=== PATIENT | male | born 1930 | race Caucasian/White ===

== ENCOUNTER 2021-05-23 21:09 | Inpatient (IN) | payer OTHER ==
[~2021-05-23] VITALS: Ht 182.9 cm; Wt 99.8 kg
[2021-05-23 21:09] VITALS: BP 137/76
[~2021-05-23 21:09] MED LIST: ASPIR 8181 MG PO; BISOPROLOL FUMAR5 M1 PO; GLUCOTROL5 MG PO; HYDROCHLOROTH12.5 M1 PO; LEVAQUIN 500 M500 M2 PO; LISINOPRIL20 MG PO; MAGNESIUM400 MG PO; METFORMIN HCL500 M1 PO; MUCINEX TA600 MG/TA2 PO; NORVASC5 MG PO; PLAVIX 75 MG TA75 M1 PO; PRAVACHOL40 MG PO; TYLENOL325 MG PO; UROCIT-K10 ME1; VITAMIN B-12500 MCG PO; VITAMIN D3250 MC1 PO; VITAMIN D3400 UNIT PO
[2021-05-23] MEDS ORDERED: XARELTO20 MG PO (21:35)
[2021-05-23] MEDS ORDERED: KLOR-CON M2020 MEQ PO (21:40)
[2021-05-23 21:41] LABS: BASOPHILS 0.4 % (0.0-2.0); EOSINOPHILS 0.6 % (0.0-3.0); HEMATOCRIT 45.6 % (42.0-52.0); HEMOGLOBIN 14.8 gm/dL (14.0-18.0); LYMPHOCYTES 17.6 % (24.0-44.0); MCH 30.8 pg (26.0-34.0); MCHC 32.5 g/dL (28.0-37.0); MCV 94.6 fL (80.0-100.0); MONOCYTES 8.5 % (1.0-8.0); PLATELET COUNT 192 thou/uL (150-400); POLYS 72.9 % (36.0-66.0); RBC 4.81 mil/uL (4.50-6.00); RDW 14.3 % (10.5-14.5); WBC 9.6 thou/uL (4.0-11.0)
[2021-05-23] MEDS ORDERED: BASAGLAR K100 UNIT/1 SUBQ ×2 (21:43)
[2021-05-23 21:44] LABS: CALCIUM 9.1 mg/dL (8.5-10.1); POTASSIUM 4.1 mmol/L (3.5-5.1)
[2021-05-23 21:54] LABS: ALBUMIN 3.2 g/dL (3.4-5.0); TOTAL BILIRUBIN 0.4 mg/dL (0.2-1.0); TOTAL PROTEIN 7.1 g/dL (6.4-8.2)
--- NOTE | 2021-05-23 23:39 | NUR ---
(JAQUAN HUGO) WENT HOME. PT'S PRIVACY CODE GIVEN TO . [facility] # [phone] [facility] # [phone]
[2021-05-24 04:58] LABS: CALCIUM 8.6 mg/dL (8.5-10.1); CREATININE 0.8 mg/dL (0.7-1.3); POTASSIUM 3.9 mmol/L (3.5-5.1)
[2021-05-24 05:05] LABS: CHOLESTEROL 129 mg/dL (<200); HDL CHOLESTEROL 37 mg/dL (>40); LDL CHOLESTEROL 66 mg/dL (<100); TC:HDL 3.5 Ratio (Not establshd); TRIGLYCERIDE 132 mg/dL (<150); VLDL 26 mg/dL (<40)
[2021-05-24 05:06] LABS: SERUM ASSESSMENT Clear
--- NOTE | 2021-05-24 06:16 | NUR ---
PT REMAINED IN ER DURING THE NIGHT, WAITING FOR INPATIENT BED. NO NEW COMPLAINTS. CHEST PAIN HAS RESOLVED, EXCEPT FOR SOME DISCOMFORT WITH DEEP BREATHS. HE REMAINS ON 2L NC FOR COMFORT. VSS. AFEBRILE. AFIB W/ PVCS ON CAR STORER. IVF INFUSING ORDERED. CARDIOLOGY CONSULT CALLED. WILL GIVE REPORT TO DAY RN.
--- NOTE | 2021-05-24 07:15 | NUR ---
REPORT CALLED TO SUN OVIEDO IN CCU.
[2021-05-24 08:19] VITALS: BP 140/79
[2021-05-24 09:11] VITALS: BP 115/67
--- NOTE | 2021-05-24 11:51 | EKG ---
[place] [address] [facility] [address] ELECTROCARDIOGRAM REPORT Name: SATNAM HUGO Room #: 206-P ADM IN M.R.#: [id number] Admission: 05/23/21 Attend Phys: Quinten Schulz MD Discharge: Date of : [birth year] Report #: [id number] [facility] Test Date: 2021-05-24 Test Time: 08:12:20 Pat Name: SATNAM HUGO Department: Room: 206 Gender: M Claim Taker: JAVIER : 1930 Requested By: Amanda Mendez Order Number: [id number] MD: Anthony Shoemaker Measurements Intervals [place] Rate: 74 P: 33 VA: 227 QRS: 21 QRSD: 104 T: 9 QT: 405 QTc: 450 Interpretive Statements Sinus rhythm Prolonged VA interval Abnormal R-wave progression, early transition Inferior infarct, old Compared to ECG 05/23/2021 21:12:26 No significant change Electronically Signed On 05-24-2021 11:51:19 CDT by Anthony Shoemaker [email or web address] <ELECTRONICALLY SIGNED> By: Anthony Shoemaker MD 05/24/21 1151 1 1 Anthony Shoemaker MD /DARA
--- NOTE | 2021-05-24 11:54 | EKG ---
[place] [address] [facility] [place] [address] ELECTROCARDIOGRAM REPORT Name: SATNAM HUGO Room #: 206-P ADM IN M.R.#: [id number] Admission: 05/23/21 Attend Phys: Quinten Schulz MD Discharge: Date of : [birth year] Report #: [id number] [facility] ED Test Date: 2021-05-23 Test Time: 21:12:26 Pat Name: SATNAM HUGO Department: Room: 206 Gender: M Corporate Tax Manager: GENNY : 1930 Requested By: Rodney Pope Order Number: [id number] MD: Anthony Shoemaker Measurements Intervals [place] Rate: 76 P: 25 CO: 194 QRS: 36 QRSD: 114 T: 23 QT: 393 QTc: 442 Interpretive Statements Sinus rhythm Multiple premature complexes, vent & supraven Borderline intraventricular conduction delay Abnormal R-wave progression, early transition Compared to ECG 04/21/2015 07:20:11 PVC present Electronically Signed On 05-24-2021 11:54:09 CDT by Anthony Shoemaker [email or web address] <ELECTRONICALLY SIGNED> By: Anthony Shoemaker MD 05/24/21 1154 11 11 MD SHANAE Rawls
[2021-05-24 16:00] VITALS: BP 130/54
[2021-05-24 19:16] VITALS: BP 105/45
[2021-05-25 04:02] VITALS: BP 109/68
[2021-05-25 04:05] LABS: GLYCOHEMOGLOBIN (HGB A1C) 7.8 % (4.8-5.6)
--- NOTE | 2021-05-25 06:42 | NUR ---
ASSUME CARE 1900. PT/VITALS STABLE. DENIES ANY PAIN THROUGH THE SHIFT. SR/1D AVB NOTED ON MONITO. GOOD ENDURANCE TO ACTIVITY. NO SOB NOTED. NO DISTRESZS/ADEQUATE REST NOTED THROUGH THE NIGHT. NPOAFTER MIDNIGHT FOR STRESS TEST/ECHO THIS AM. PLAN IS FOR POSSIBLE DISCHARGE IF STRESS TEST/ECHO ARE OK. WILL CONTINUE TO MONITOR AND FOLLOW WITH POC
[2021-05-25 08:00] VITALS: BP 125/69
--- NOTE | 2021-05-25 08:33 | HC ---
[facility] [place] [address] CONSULTATION Name: SATNAM HUGO Room #: 206-P ADM IN M.R.#: [id number] Admission: 05/23/21 Attend Phys: Francois Caldera MD Discharge: Date of : [birth year] Report #: [id number] THIS REPORT FOR: cc: Sivakumar Conde MD, Usman MD Park, Jin S. MD ~ DATE OF SERVICE: 05/24/2021 CARDIOLOGY CONSULTATION CHIEF COMPLAINT: Chest pain. HISTORY OF PRESENT ILLNESS: This 89-year-old gentleman with a history of CAD, status post stent, PAF, hypertension, diabetes mellitus, hyperlipidemia, hypercholesterolemia and edema, presenting with chest pain. Yesterday, he developed a discomfort on the left upper chest area radiating down the left side. It was not associated with any exertion. It was intermittent, lasting approximately 10-15 minutes in duration. Not associated with any shortness of breath or diaphoresis. He had recurrent pains last evening and decided to come to the ER for evaluation. There is no change with stretching or palpation over the area. Toward the end of his inspiration, he does feel it. There is no history of fever, chills or diarrhea. PAST MEDICAL HISTORY: Follows with Dr. Viera. Previous stent placement. History of paroxysmal atrial fibrillation, diabetes, hypertension, hyperlipidemia and edema. ALLERGIES: None. MEDICATIONS AT HOME: Include glipizide, Pravachol 40 mg, hydrochlorothiazide, bisoprolol, amlodipine, lisinopril, metformin, Xarelto, and insulin. SOCIAL HISTORY: Negative for tobacco use. FAMILY HISTORY: Negative for premature CAD. REVIEW OF SYSTEMS: A full 10-point review of systems performed. Only the pertinent positives and negatives described in the HPI. PHYSICAL EXAMINATION: VITAL SIGNS: Blood pressure is 115/67, heart rate is 50 beats per minute. GENERAL APPEARANCE: Overweight male, in no acute distress. HEENT: Normocephalic, atraumatic. Oral mucosa moist. [facility] [address] [place] [address] CONSULTATION Name: SATNAM HUGO Room #: 206-P [facility] IN .R.#: [id number] Admission: 05/23/21 Attend Phys: Francois Caldera MD Discharge: Date of : [birth year] Report #: [id number] NECK: Supple. LUNGS: CTA. HEART: Regular rate and rhythm, S1, S2 positive. ABDOMEN: Soft, nontender. EXTREMITIES: No cyanosis. Positive lower extremity edema. DIAGNOSTIC DATA: ECG reveals sinus rhythm, early transition, inferior wall NM, no acute ST segment changes. LABORATORY DATA: Troponin x2 is negative. ASSESSMENT AND PLAN: 1. Chest pain syndrome, the differential includes ischemia, musculoskeletal, pleuritic, etc. Initial evaluation is not consistent with an acute coronary syndrome. However, he has significant risk factors and we will proceed with noninvasive stress testing. 2. Paroxysmal atrial fibrillation, remains in sinus rhythm. Continue on meds. 3. Hypertension, continue on the current medical regimen. 4. Diabetes mellitus, continue on insulin and check fingersticks. 5. Coronary artery disease with stent placement, follows with Dr. Viera. <ELECTRONICALLY SIGNED> By: Anthony Shoemaker MD 05/25/21 0833 1136 1415 Anthony Shoemaker MD /nt
--- NOTE | 2021-05-25 12:34 | 2DMMODE ---
[facility] [place] [address] 2 D/M-MODE ECHOCARDIOGRAM Name: SATNAM HUGO Room #: 206-P ADM IN .R.#: [id number] Admission: 05/23/21 Attend Phys: Francois Caldera MD Discharge: Date of : [birth year] Report #: [id number] THIS REPORT FOR: cc: Sivakumar Conde MD, Usman MD Park, Jin S. MD ~ APPROVED REPORT Study performed: 05/25/2021 08:25:59 EXAM: Comprehensive 2D, Doppler, and color-flow Echocardiogram Patient Location: In-Patient Room #: 206 Status: routine BSA: 2.21 HR: 80 bpm BP: 109/68 mmHg Rhythm: NSR Other Information Study Quality: Adequate Indications Atrial Fibrillation CAD Chest Pain Edema 2D Dimensions IVSd: 13.91 (7-11mm) LVDd: 28.72 mm PWd: 10.32 (7-11mm) LVDs: 17.90 (25-40mm) Left Atrium: 40.66 (27-40mm) Aortic Root: 34.01 mm Volumes Left Atrial Volume (Systole) Single Plane 4CH: 58.57 mL Single Plane 2CH: 49.12 mL Biplane LA Volume: 61.00 mL LA ESV Index: 27.00 mL/m2 Aortic Valve AoV Peak Akin.: 1.65 m/s AO Peak Gr.: 14.48 mmHg LVOT Max P.60 mmHg [facility] [address] [place] [address] 2 D/M-MODE ECHOCARDIOGRAM Name: SATNAM HUGO Room #: 206-P ADM IN M.R.#: [id number] Admission: 05/23/21 Attend Phys: Francois Caldera MD Discharge: Date of : [birth year] Report #: [id number] LVOT Max V: 0.95 m/s Mitral Valve E/A Ratio: 0.9 MV Decel. Time: 342.67 ms MV E Max Akin.: 0.80 m/s MV A Akin.: 0.91 m/s MV PHT: 99.37 ms IVRT: 83.04 ms Pulmonary Valve PV Peak Akin.: 0.92 m/s PV Peak Gr.: 3.40 mmHg Pulmonary Vein P Vein S: 0.25 m/s P Vein A: 0.35 m/s P Vein D: 0.32 m/s P Vein A Dur.: 156.9 msec P Vein S/D Ratio: 0.78 Tricuspid Valve TR Peak Akin.: 2.66 m/s RAP Estimate: 7.00 mmHg TR Peak Gr.: 28.34 mmHg RVSP: 35.00 mmHg Left Ventricle The left ventricle is normal size. There is normal LV segmental wall motion. Mild concentric left ventricular hypertrophy. The left ventricular systolic function is normal. The left ventricular ejection fraction is within the normal range. LVEF is 65-70%. Transmitral Doppler flow pattern suggests impaired LV relaxation. Right Ventricle The right ventricle is normal size. The right ventricular systolic function is normal. Atria The left atrium size is normal. The right atrium size is normal. Aortic Valve The aortic valve is normal in structure. No aortic regurgitation is present. There is no aortic valvular stenosis. Mitral Valve The mitral valve is normal in structure. Trace mitral regurgitation. No evidence of mitral valve stenosis. [facility] [address] [place] [address] 2 D/M-MODE ECHOCARDIOGRAM Name: SATNAM HUGO [place] Room #: 206-P ADM IN M.R.#: [id number] Admission: 05/23/21 Attend Phys: Francois Caldera MD Discharge: Date of : [birth year] Report #: [id number] Tricuspid Valve The tricuspid valve is normal in structure. Mild tricuspid regurgitation. Pulmonic Valve The pulmonary valve is normal in structure. There is no pulmonic valvular regurgitation. Great Vessels The aortic root is normal in size. IVC is not well visualized. Pericardium No subcostal window <Conclusion> The left ventricle is normal size. Mild concentric left ventricular hypertrophy. The left ventricular systolic function is normal. The right ventricle is normal size. The left atrium size is normal. The aortic valve is normal in structure. Trace mitral regurgitation. Mild tricuspid regurgitation. <ELECTRONICALLY SIGNED> By: Anthony Shoemaker MD 05/25/21 1234 1234 1234 Anthony Shoemaker MD /INF
[2021-05-25] MEDS ORDERED: BAYER CHEWABLE81 MG PO (12:47)
[2021-05-25 14:35] VITALS: BP 125/69
--- NOTE | 2021-05-25 14:50 | NUR ---
ASSESSMENT CHARTED. PT ALERT AND ORIENTED. VSS. DENIED HAVING PAIN OR DISCOMFORT. ORDERS GIVEN TO DISCHARGE PT TO HOME. DISCHARGE INSTRUCTIONS GIVEN TO PT. PT VERBERLISED UNDERSTANDING.
== END 2021-05-25 14:54 | disposition home or self-care (01) | DRG 206 ==
LOC: ER 21:09 → EROBS 23:07 → 2N 23:07
PROVIDERS: Emergency Medicine; Nurse Practitioner Family; ADMIT Hospitalist; ATTEND Hospitalist
DX: M94.0 Chondrocostal junction syndrome [Tietze] (principal); I25.10 Atherosclerotic heart disease of native coronary artery without angina pectoris; Z20.822 Contact with and (suspected) exposure to COVID-19; Z79.899 Other long term (current) drug therapy; Z95.5 Presence of coronary angioplasty implant and graft; E78.5 Hyperlipidemia, unspecified; E11.9 Type 2 diabetes mellitus without complications; I48.0 Paroxysmal atrial fibrillation; Z79.01 Long term (current) use of anticoagulants; I10 Essential (primary) hypertension; Z87.891 Personal history of nicotine dependence; E78.00 Pure hypercholesterolemia, unspecified
CPT/HCPCS: 10081